=== PATIENT | female | born 1990 | race Caucasian/White ===

== ENCOUNTER 2016-07-25 17:46 | Emergency (ER) | payer BC, MEDICAID ==
[~2016-07-25] VITALS: Ht 162.6 cm; Wt 56.2 kg
[~2016-07-25 17:46] MED LIST: AC500T PO; FERR325T36 PO; HYDR-22 PO; LEVO1TBD PO; NAPR220T76 PO; PREN1TAB71 PO; [UNRECOGNIZED DRUG - CODE] PO
--- NOTE | 2016-07-25 17:57 | NUR ---
PATIENT UP TO TOILET TO PROVIDE URINE SPECIMEN.
--- NOTE | 2016-07-25 18:57 | NUR ---
DR. MONTILE HAS REMOVED C-COLLAR.
[2016-07-25] MEDS ORDERED: CYCL10TA45 PO (19:03)
[2016-07-25] MEDS ORDERED: NAPR550T PO (19:03)
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
[2016-07-25 19:29] VITALS: BP 110/72
== END 2016-07-25 19:12 | disposition home or self-care (01) ==
LOC: ED 17:47
DX: S16.1XXA Strain of muscle, fascia and tendon at neck level, initial encounter (principal); V43.52XA Car driver injured in collision with other type car in traffic accident, initial encounter; Y92.410 Unspecified street and highway as the place of occurrence of the external cause; Y93.89 Activity, other specified
CPT/HCPCS: 72050; 99283